=== PATIENT | male | born 1995 | race Two or more races ===

== ENCOUNTER 2018-01-11 20:50 | Emergency (ER) | payer OTHER ==
[~2018-01-11] VITALS: Ht 180.3 cm; Wt 68.0 kg
[2018-01-12] MEDS ORDERED: KETO10TA2 PO (04:26)
[2018-01-12] MEDS ORDERED: CIPRO500 MG PO (04:26)
== END 2018-01-12 06:00 ==
LOC: ER 20:50
DX: N39.0 Urinary tract infection, site not specified (principal); R10.9 Unspecified abdominal pain

== ENCOUNTER 2018-03-25 08:35 | Outpatient (CLI) | payer OTHER ==
[~2018-03-25 08:35] MED LIST: CIPRO500 MG PO; KETO10TA2 PO
== END 2018-03-25 09:30 | disposition home or self-care (01) ==
LOC: NUCLEAR 08:35
DX: M25.572 Pain in left ankle and joints of left foot (principal)
CPT/HCPCS: 78315; 78306; A9503